=== PATIENT | male | born 1955 | race Caucasian/White ===

== ENCOUNTER 2017-11-27 14:52 | Inpatient (IN) | payer MEDICARE ==
[~2017-11-27] VITALS: Ht 182.9 cm; Wt 82.6 kg
[2017-11-27] MEDS ORDERED: CLON1TAB PO (15:06)
[2017-11-27] MEDS ORDERED: DIVALPROEX SODIUM (15:06)
[2017-11-27] MEDS ORDERED: LEVO100T PO (15:06)
[2017-11-27] MEDS ORDERED: HYDR-3972 PO (15:06)
[2017-11-27] MEDS ORDERED: IBUP-23 PO (15:06)
--- NOTE | 2017-11-27 15:20 | NUR ---
mse completed, pt to rm 140a , sbar report given.
[2017-11-27 15:45] VITALS: BP 139/85
[2017-11-27] MEDS ORDERED: ACETAMINOPHEN 325 MG TABLET PO PRN (15:45)
[2017-11-27] MEDS ORDERED: MAGNESIUM HYDROXIDE 30 ML LIQUID UDC PO PRN (15:45)
[2017-11-27] MEDS ORDERED: MAG HYDROX/AL HYDROX/SIMETH 30 ML LIQUID UDC PO PRN (15:45)
--- NOTE | 2017-11-27 15:45 | NUR ---
Pt arrived to unit via gurney accompanied by inside trucker. No combative or aggressive behavior. Very labile mood, requires redirection at times. Pt is quite intrusive, making multiple requests to staff. Denies pain or discomfort at this time.
[2017-11-27 19:30] VITALS: BP 170/89
[2017-11-27] MEDS: LORAZEPAM 1 MG TABLET PO PRN (19:39)
--- NOTE | 2017-11-27 19:40 | NUR ---
Received patient awake & alert in he hallway, anxious hyper verbal c/o bilateral foot discomfort. No SOB noted. Tylenol 650 mg po & Ativan 1 mg po given. Vital signs are WNL.
[2017-11-27] MEDS: HYDROCODONE/APAP 5-325MG TABLET PO PRN (20:25)
[2017-11-27] MEDS: QUETIAPINE FUMARATE 100 MG TABLET PO SCH ×2 (22:37→22:56)
[2017-11-27] MEDS: TRAZODONE 100 MG TABLET PO SCH ×2 (22:37→22:55)
[2017-11-27] MEDS: CLONAZEPAM 1 MG TABLET PO SCH ×2 (22:37→22:56)
[2017-11-27] MEDS: DIVALPROEX 250 MG TABLET.DR PO SCH ×2 (22:37→22:55)
--- NOTE | 2017-11-27 22:46 | NUR ---
DR RODRIGUEZ SPOKE WITH Pt ABOUT HIS TREATMENT PLAN AND MEDICATIONS. Pt IS AWARE OF ALL MEDICATIONS PRESCRIBED AND WAS WITNESSED TO VERBALIZE THAT HE "WOULD TRY" THE MEDICATIONS. 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 DEPAKOTE 250MG, SEROQUEL 100MG, KLONOPIN 1MG, TRAZODONE 100MG OFFERED TO Pt AND SCANNED. Pt THEN STATED HE DIDN'T KNOW WHAT THESE MEDICATIONS WERE, AND ASKED FOR HIS NORCO. IT WAS EXPLAINED TO Pt THAT HE HAD JUST TAKEN HIS NORCO WITHIN THE LAST HOUR. ALL MEDICATIONS WERE RE-EXPLAINED TO THE Pt, WHO VERBALIZED UNDERSTANDING. Pt STATED HE WOULD "WAIT" TO TAKE THE SLEEP MEDS. NON-PHARMACOLOGICAL REMEDIES OFFERED AND REFUSED.
--- NOTE | 2017-11-27 23:15 | NUR ---
Discussed & explained to patioent about indication of his new meds, patient verbalized understanding & took all his new prescribed meds by Dr. Naylor. Night snacks provided & instructed to go back to bed. Patient compliant w/ care.
--- NOTE | 2017-11-28 00:13 | NUR ---
Sleeping comfortably, no sign of distress.
--- NOTE | 2017-11-28 01:15 | NUR ---
Patient awake wondering around the hallway but completely disoriented, drowsy & staggering. Vital signs shows BP 124/80, HR 20 O2Sat 98%. Placed on Debbie-chair for now for patient's safety. Will continue to monitor.
[2017-11-28 01:20] VITALS: BP 124/80
--- NOTE | 2017-11-28 03:17 | NUR ---
Uncontrollable at this time, yelling & very manipulative, threatening the nurses & repetitively stating "I will kill you & I will kill myself". Kept patient on a secured Debbie-chair for patient's safety. Will continue to monitor.
[2017-11-28] MEDS: HYDROCODONE/APAP 5-325MG TABLET PO PRN ×2 (05:16→12:16)
[2017-11-28] MEDS: LORAZEPAM 1 MG TABLET PO PRN ×3 (05:16→14:05)
--- NOTE | 2017-11-28 05:17 | NUR ---
Patient slightly calmer but remains anxious, c/o bilateral lower leg & foot pain with 7/10 pain level. [place] 1 tab po & Ativan 1 mg po given. [place] sandwich provided per patient request.
[2017-11-28 06:48] LABS: BASOPHILS # (AUTO) 0.1 K/uL (0.0-8.0); BASOPHILS % (AUTO) 0.7 % (0.0-2.0); EOSINOPHILS # (AUTO) 0.1 K/uL (0.0-0.7); EOSINOPHILS % (AUTO) 0.8 % (0.0-7.0); HEMATOCRIT 38.4 % (36.7-47.1); HEMOGLOBIN 12.9 g/dL (12.5-16.3); LYMPHOCYTES # (AUTO) 2.3 K/uL (20.0-40.0); LYMPHOCYTES % (AUTO) 26.9 % (20.5-51.5); MEAN CORPUSCULAR HEMOGLOBIN 30.5 uug (23.8-33.4); MEAN CORPUSCULAR HGB CONC 34 g/dL (32.5-36.3); MONOCYTES # (AUTO) 0.9 K/uL (2.0-10.0); MONOCYTES % (AUTO) 10.8 % (0.0-11.0); NEUTROPHILS # (AUTO) 5.2 K/uL (1.8-8.9); NEUTROPHILS % (AUTO) 60.8 % (38.5-71.5); PLATELET COUNT (AUTO) 350 K/uL (152-348); RED BLOOD CELL COUNT(AUTO) 4.22 MIL/uL (4.06-5.63); WHITE BLOOD COUNT (AUTO) 8.6 K/uL (3.6-10.2)
[2017-11-28] MEDS ORDERED: LEVOTHYROXINE SODIUM 100 MCG TABLET PO SCH (07:00)
--- NOTE | 2017-11-28 07:13 | NUR ---
Patient showered today with assist. Requesting special breakfast today (scrambled eggs, perez well done cooked, & cerial w/a cold milk). Compliant w/ meds, no pain complaint at this time. No acute resp distress. Vital signs WNL.
[2017-11-28 07:30] VITALS: BP 153/79
[2017-11-28 07:36] LABS: BILIRUBIN,TOTAL 0.4 mg/dL (0.2-1.0); CREATININE 1.2 mg/dL (0.6-1.3); MAGNESIUM 2.2 mg/dL (1.8-2.4); PHOSPHOROUS 2.7 mg/dL (2.5-4.9); POTASSIUM 3.6 mmol/L (3.5-5.1); TOTAL PROTEIN, SERUM 7.1 g/dL (6.4-8.2)
[2017-11-28 08:04] LABS: THYROID STIMULATING HORMONE 8.368 mIU/mL (0.358-3.740)
[2017-11-28] MEDS: DIVALPROEX 250 MG TABLET.DR PO SCH ×3 (08:14→16:48)
[2017-11-28 09:38] VITALS: BP 153/79
[2017-11-28 15:13] VITALS: BP 151/80
[2017-11-28] MEDS ORDERED: diphenhydrAMINE 50 MG/1 ML VIAL IM ONE (15:15)
[2017-11-28] MEDS ORDERED: LORAZEPAM 2 MG/1 ML VIAL IM ONE (15:15)
[2017-11-28] MEDS ORDERED: HALOPERIDOL LACTATE 5 MG/1 ML VIAL IM ONE (15:15)
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
--- NOTE | 2017-11-28 15:41 | NUR ---
GPS/RN- PATIENT USING UNIT PHONE INDEPENDENTLY; THEN REQUESTING AND DEMANDING WE DIAL NUMBERS FOR HIM. PATIENT VERBALIZING HE DOESN'T KNOW HOW TO USE IT ALTHOUGH HE HAS BEEN USING AND MAKING CALLS INDEPENDENTLY. PATIENT BECOMING VERBALLY ABUSIVE WHEN STAFF ATTEMPTS TO GIVE HIM INSTRUCTIONS ON USE.
--- NOTE | 2017-11-28 17:24 | NUR ---
GPS/RN- patient Nephew here to visit, Ayo Jeter. Valuables in safe released to Ayo per patient request. patient present, staff present as witness, winter,HARLEY, and Keke Morejon CNA and Nelson Grimes LVN.
[2017-11-28] MEDS: AMLODIPINE 5 MG TABLET PO SCH (18:32)
[2017-11-28] MEDS: CLONAZEPAM 1 MG TABLET PO SCH (20:14)
[2017-11-28] MEDS: TRAZODONE 100 MG TABLET PO SCH (20:14)
[2017-11-28] MEDS: QUETIAPINE FUMARATE 100 MG TABLET PO SCH (20:14)
[2017-11-28 20:41] VITALS: BP 145/74
[2017-11-29] MEDS: LORAZEPAM 1 MG TABLET PO PRN ×3 (02:18→14:16)
--- NOTE | 2017-11-29 02:28 | NUR ---
GPS: Pt.is anxious,intrusive and constantly at nurses station for no reason. Constant re-direction and re-assurance provided by staff. Ativan 1mg given PO. Will monitor effectiveness. Reality re-orientation provided.
[2017-11-29] MEDS: LEVOTHYROXINE SODIUM 112 MCG TABLET PO SCH (06:15)
--- NOTE | 2017-11-29 06:55 | NUR ---
GPS: Remain confused and disoriented through the night. wondering around in the unit. asking staff to call 911 or call for texi. stated i want go to the hospital[place]. slept 5:30 hrs .continue mnitoring for safety.
[2017-11-29 07:30] VITALS: BP 124/89
[2017-11-29] MEDS: AMLODIPINE 5 MG TABLET PO SCH (08:31)
[2017-11-29] MEDS: DIVALPROEX 250 MG TABLET.DR PO SCH ×3 (08:31→16:34)
[2017-11-29] MEDS: HYDROCODONE/APAP 5-325MG TABLET PO PRN ×2 (08:31→20:11)
[2017-11-29] MEDS: QUETIAPINE FUMARATE 100 MG TABLET PO SCH ×2 (08:31→20:34)
[2017-11-29 16:28] VITALS: BP 117/68
[2017-11-29] MEDS: FLUVOXAMINE MALEATE 25 MG TABLET PO SCH (17:15)
[2017-11-29 20:00] VITALS: BP 134/71
--- NOTE | 2017-11-29 20:10 | NUR ---
PATIENT C/O GENERALIZED PAIN. REQUESTING FOR NORCO. PATIENT GIVEN 1 TAB PO ORDERED PRN FOR PAIN. WILL CONTINUE TO MONITOR AND ASSESS.
[2017-11-29] MEDS: CLONAZEPAM 1 MG TABLET PO SCH (20:34)
[2017-11-29] MEDS: TRAZODONE 100 MG TABLET PO SCH (20:34)
--- NOTE | 2017-11-29 21:15 | NUR ---
NORCO EFFECTIVE. DENIES PAIN AT THIS TIME. WILL CONTINUE TO MONITOR AND ASSESS.
[2017-11-30] MEDS: TEMAZEPAM 7.5 MG CAPSULE PO PRN ×2 (00:58→23:03)
--- NOTE | 2017-11-30 00:59 | NUR ---
PATIENT AWAKE. UNABLE TO SLEEP. GIVEN RESTORIL 7.5MG PO PRN FOR SLEEP. WILL CONTINUE TO MONITOR AND ASSESS.
[2017-11-30] MEDS: HYDROCODONE/APAP 5-325MG TABLET PO PRN ×3 (04:17→16:48)
--- NOTE | 2017-11-30 04:18 | NUR ---
GPS: Pt.is very intrusive and constantly at the nurses station demanding to use the phone at this time to call "[employer]". Easily irritable when staff is trying to re-direct him. Pt. is tangential and has flight of ideas at this time. Complained of pain on both of his feet 10/10 and demanding for his Foster. Foster 5/325 given for pain. Rest periods encouraged to facilitate relief. Constant re-direction/limit setting provided by staff. Will continue to monitor behavior for further escalation.
[2017-11-30] MEDS: LEVOTHYROXINE SODIUM 112 MCG TABLET PO SCH (06:09)
--- NOTE | 2017-11-30 06:41 | NUR ---
PATIENT AMBULATING IN HALLWAY. SLEPT A TOTAL OF 4 HOURS ON AND OFF. PATIENT WAS VERY NEEDY THROUGHOUT THE NIGHT AND REQUIRED FREQUENT REDIRECTION. LABILE MOOD. ALL NEEDS ATTENDED. WILL CONTINUE TO MONITOR.
[2017-11-30 07:02] LABS: *BILIRUBIN,URIN NEGATIVE (NEGATIVE); *BLOOD, URINE 1+ (NEGATIVE); *COLOR,URINE YELLOW (YELLOW); *KETONES,URINE NEGATIVE (NEGATIVE); *PROTEIN,URINE NEGATIVE (NEGATIVE); *UROBILINOGEN,URINE 0.2 E.U./dl (NORMAL); LEUKOCYTE ESTERASE ,URINE 3+ (NEGATIVE); NITRITE, URINE NEGATIVE (NEGATIVE); UGLUCOSE NEGATIVE (NEGATIVE)
[2017-11-30 07:17] LABS: *CLARITY,URINE CLOUDY (CLEAR)
[2017-11-30 07:19] LABS: BACTERIA,URINE MANY /HPF (NONE SEEN); RENAL EPITHELIAL CELLS,URINE FEW /LPF (NONE SEEN); SQUAMOUS EPITHELIAL CELL,UR FEW /HPF (NONE SEEN); TRANSITIONAL EPI CELLS,URINE FEW /LPF (NONE SEEN); WBC,URINE TNTC /HPF (0-3)
[2017-11-30 07:30] VITALS: BP 131/81
[2017-11-30] MEDS: FLUVOXAMINE MALEATE 25 MG TABLET PO SCH ×3 (08:13→16:46)
[2017-11-30] MEDS: QUETIAPINE FUMARATE 100 MG TABLET PO SCH ×2 (08:13→08:18)
[2017-11-30] MEDS: AMLODIPINE 5 MG TABLET PO SCH (08:13)
[2017-11-30] MEDS: DIVALPROEX 250 MG TABLET.DR PO SCH ×3 (08:13→16:53)
[2017-11-30] MEDS: LORAZEPAM 1 MG TABLET PO PRN ×3 (08:20→21:04)
[2017-11-30] MEDS: CEPHALEXIN MONOHYDRATE 500 MG CAPSULE PO SCH ×3 (10:41→21:04)
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
[2017-11-30 15:50] VITALS: BP_SYST 126; BP_SYST 144; BP_DIAS 63; BP_DIAS 67
--- NOTE | 2017-11-30 19:30 | NUR ---
Patient is alert, awake, & responsive currently sitting in the day room. A/Ox4 & able to make his needs known. Vital signs within range at beginning of shift. on a 14 day hold until 12/13/17. Patient denies S.I & has no active plan. Patient on ATB therapy for UTI. Room checked for safety at start of shift. Established rapport with patient. Will provide a safe & therapeutic environment through shift.
[2017-11-30 20:16] VITALS: BP 141/74
[2017-11-30] MEDS: TRAZODONE 100 MG TABLET PO SCH ×2 (20:44→21:52)
[2017-11-30] MEDS: QUETIAPINE FUMARATE 200 MG TABLET PO SCH ×2 (20:44→21:51)
[2017-11-30] MEDS: CLONAZEPAM 1 MG TABLET PO SCH ×2 (20:44→21:00)
[2017-12-01] MEDS: LORAZEPAM 1 MG TABLET PO PRN ×3 (04:09→18:03)
[2017-12-01] MEDS: HYDROCODONE/APAP 5-325MG TABLET PO PRN ×3 (05:10→20:24)
[2017-12-01] MEDS: LEVOTHYROXINE SODIUM 112 MCG TABLET PO SCH (06:00)
[2017-12-01] MEDS: CEPHALEXIN MONOHYDRATE 500 MG CAPSULE PO SCH ×3 (06:00→20:15)
--- NOTE | 2017-12-01 06:28 | NUR ---
Patient slept a total of 2 hours on and off ambulating in the hallway. Continues to be very needy throughout the night & required frequent redirection. Noted with labile mood. Compliant with medications. Administered Ativan 1mg PRN for agitation. Pain management provided per MD order. Provided a safe & therapeutic environment. All needs attended to promptly. Will endorse to day shift nurse.
[2017-12-01 07:30] VITALS: BP 142/71
[2017-12-01] MEDS: DIVALPROEX 250 MG TABLET.DR PO SCH ×3 (08:39→17:09)
[2017-12-01] MEDS: AMLODIPINE 5 MG TABLET PO SCH (08:39)
[2017-12-01] MEDS: FLUVOXAMINE MALEATE 25 MG TABLET PO SCH ×3 (08:39→17:09)
[2017-12-01 17:27] VITALS: BP 138/74
[2017-12-01] MEDS: TRAZODONE 100 MG TABLET PO SCH ×3 (20:17→22:34)
[2017-12-01] MEDS: CLONAZEPAM 1 MG TABLET PO SCH ×3 (20:17→22:34)
[2017-12-01] MEDS: QUETIAPINE FUMARATE 200 MG TABLET PO SCH ×3 (20:17→22:34)
[2017-12-01 20:21] VITALS: BP 159/78
[2017-12-01] MEDS: DIVALPROEX 500 MG TABLET.DR PO SCH ×2 (21:59→22:33)
--- NOTE | 2017-12-01 22:30 | NUR ---
received to care, intermittently pacing the hallway, interacting minimally with peers. continues to require frequent limit setting and redirection. PRN norco was given at 2023, with good effects. as of 2229, he remains awake. no distress noted.
[2017-12-01] MEDS ORDERED: DIVALPROEX 500 MG TABLET.DR PO ONE (22:38)
[2017-12-02] MEDS: LORAZEPAM 1 MG TABLET PO PRN ×3 (04:34→16:48)
--- NOTE | 2017-12-02 04:34 | NUR ---
PRN ativan given for anxiety
[2017-12-02] MEDS: CEPHALEXIN MONOHYDRATE 500 MG CAPSULE PO SCH ×4 (05:43→22:53)
--- NOTE | 2017-12-02 06:00 | NUR ---
slept 3.0 hours total.
[2017-12-02] MEDS: HYDROCODONE/APAP 5-325MG TABLET PO PRN ×3 (06:06→21:17)
[2017-12-02] MEDS: LEVOTHYROXINE SODIUM 112 MCG TABLET PO SCH (06:06)
--- NOTE | 2017-12-02 06:06 | NUR ---
appears calmer, now. PRN norco given for lower back pain 11/30.
[2017-12-02 07:30] VITALS: BP 125/86
[2017-12-02] MEDS: AMLODIPINE 5 MG TABLET PO SCH (08:20)
[2017-12-02] MEDS: DIVALPROEX 250 MG TABLET.DR PO SCH ×2 (08:21→13:24)
[2017-12-02] MEDS: FLUVOXAMINE MALEATE 25 MG TABLET PO SCH ×3 (08:21→16:48)
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
--- NOTE | 2017-12-02 13:30 | NUR ---
NORCO GIVEN FOR C/O BLE PAIN. WILL CONT TO MONITOR.
--- NOTE | 2017-12-02 14:30 | NUR ---
NORCO EFFECTIVE. PT APPEARS MORE CALM AND COMFORTABLE.
--- NOTE | 2017-12-02 14:52 | NUR ---
Activity group note: Patients were asked to look at [employer] pictures and share a story telling what they saw in the picture or how it made them feel. Patients were encouraged to reference their senses such as smell, taste, feel, hear, etc. Subjective: "Ok, my turn to look at the picture" [Pt made this comment with enthusiasm and interest]. Objective: Patient appeared happy to participate in activity and gave opinion about each picture. Patient was attentive to others responses though needed redirection when interrupting other patients while talking. Assessment: Patient needs help with boundary setting and impulse control as would often say inappropriate things during group (i.e. "is it time to smoke a joint?"). Plan: Encourage group attendance as scheduled. shoe worker will continue to provide guidance and support in boundary setting and impulse control during group activities.
[2017-12-02 16:15] VITALS: BP 132/71
--- NOTE | 2017-12-02 18:24 | NUR ---
PT DEMANDING AND NEEDY, GIVEN IF APPROPRIATE BUT GIVEN BOUNDARIES WELL. FRIENDLY WITH OTHER RESIDENTS. WENT OUT TO [place] TODAY AT LEAST THREE TIMES. WANTS TO SHOWER TONIGHT BEFORE BED. WILL CONTINUE TO MONITOR.
[2017-12-02 19:35] VITALS: BP 159/80
[2017-12-02] MEDS: TRAZODONE 100 MG TABLET PO SCH ×2 (21:00→22:53)
[2017-12-02] MEDS: CLONAZEPAM 1 MG TABLET PO SCH ×2 (21:00→22:53)
[2017-12-02] MEDS: QUETIAPINE FUMARATE 200 MG TABLET PO SCH ×2 (21:00→22:54)
[2017-12-02] MEDS: DIVALPROEX 500 MG TABLET.DR PO SCH ×2 (21:00→22:53)
--- NOTE | 2017-12-02 23:20 | NUR ---
received to care, pleasant upon approach. demanding and manipulative. selective with medications and times he is willing to take them. PRN norco given at 2116, for 10/10 generalized pain. by 2199, he expressed good relief. he initially refused his bedtime medications, but did take them at 2252, then he went to bed. as of 2319, he remains awake, in bed. no distress noted. will continue to monitor closely.
[2017-12-03] MEDS: LORAZEPAM 1 MG TABLET PO PRN ×3 (04:04→15:04)
[2017-12-03] MEDS: HYDROCODONE/APAP 5-325MG TABLET PO PRN ×3 (05:53→18:04)
[2017-12-03] MEDS: CEPHALEXIN MONOHYDRATE 500 MG CAPSULE PO SCH ×3 (05:53→21:27)
[2017-12-03] MEDS: LEVOTHYROXINE SODIUM 112 MCG TABLET PO SCH (06:09)
[2017-12-03 07:30] VITALS: BP 139/76
[2017-12-03] MEDS: FLUVOXAMINE MALEATE 25 MG TABLET PO SCH ×3 (09:34→17:44)
[2017-12-03] MEDS: DIVALPROEX 250 MG TABLET.DR PO SCH (09:35)
[2017-12-03] MEDS: AMLODIPINE 5 MG TABLET PO SCH (09:35)
--- NOTE | 2017-12-03 11:14 | NUR ---
Discharge Planning: precast worker received info that MD is planning for patients discharge tomorrow (12/04/2017). precast worker called patients nephew, Ayo [[phone]], to confirm transportation. precast worker left voicemail and is awaiting callback.
[2017-12-03 16:32] VITALS: BP 141/78
[2017-12-03 20:00] VITALS: BP 135/76
[2017-12-03] MEDS: CLONAZEPAM 1 MG TABLET PO SCH (21:27)
[2017-12-03] MEDS: VALPROIC ACID 250 MG/5 ML LIQUID UDC PO SCH ×2 (21:59→22:24)
[2017-12-03] MEDS: QUETIAPINE FUMARATE 200 MG TABLET PO SCH ×2 (21:59→22:25)
[2017-12-03] MEDS: TRAZODONE 100 MG TABLET PO SCH ×2 (21:59→22:25)
--- NOTE | 2017-12-03 23:00 | NUR ---
received to care, pleasant upon approach. demanding and manipulative. selective with medications and times he is willing to take them. as of 2299, he appears to be asleep. no distress noted. will continue to monitor closely.
--- NOTE | 2017-12-04 01:11 | NUR ---
pt is now awake, with a staggering gait, eyes half closed, demanding medications, for sleep. he was told that he appears too sedated for sleeping medication, so he asked for both a pain pill, and an anxiety pill. when he was again told he was too sedated to take more medications at this time, he said, he was going to stay up all night, and wake everybody up, and i am going to give you a bad yelp review. firm limits were set. currently lying in bed. monitored closely for safety.
--- NOTE | 2017-12-04 03:26 | NUR ---
continues to come out intermittently, with a still unsteady gait, demanding more medications. becomes verbally abusive when told he is too sedated still. states "WAIT TILL TOMORROW. I WILL FIX YOU". he was redirected back to his room. he appears to have calmed down, for now. will continue to monitor closely.
[2017-12-04] MEDS: HYDROCODONE/APAP 5-325MG TABLET PO PRN ×2 (04:59→11:25)
[2017-12-04] MEDS: CEPHALEXIN MONOHYDRATE 500 MG CAPSULE PO SCH (05:04)
--- NOTE | 2017-12-04 05:59 | NUR ---
is more appropriate now. PRN norco given for 10/10 bilateral foot pain.
[2017-12-04] MEDS: LORAZEPAM 1 MG TABLET PO PRN ×2 (06:10→10:22)
[2017-12-04] MEDS: LEVOTHYROXINE SODIUM 112 MCG TABLET PO SCH (06:10)
--- NOTE | 2017-12-04 06:10 | NUR ---
states good relief from the norco. PRN ativan given for anxiety.
--- NOTE | 2017-12-04 06:26 | NUR ---
appears calmer, now. slept 2.5 hours total.
[2017-12-04 07:30] VITALS: BP 134/86
--- NOTE | 2017-12-04 07:53 | NUR ---
Discharge Note: Patient will be discharged back to his home [[address] [place] [id number]; [phone]] via private transportation by Ayo [[phone]], patients nephew at 1:00pm. Patient will receive home health services through [facility] ([phone]) and accepting information was provided by Eliane. Patients nephew and emergency contact, Ayo ([phone]), was contacted and informed and agreeable with discharge plan. Patient is alert and oriented x3, is able to plan for self-care, and denies any SI/HI. Patient is aware and agreeable with discharge plans. Patient will continue to follow-up with his Primary Care Physician, Dr. Brooks [[phone]] and with his psychiatrist Dr. Lackey ([phone]). However, patient is thinking about changing psychiatrists and was provided a list of Medicare accepting psychiatrists in the [place]. Pt was also provided with a list of Medicare accepting clinical psychologists in the [place] area. Patient was provided additional mental health referrals Mental Health Resources [facility] ( ), [facility] ( ), and National Suicide Prevention Lifeline ( ). Patient was provided a brief substance abuse intervention and was provided outpatient referrals for [facility] [[phone]], [facility] ([phone]), and Substance Abuse and Mental Health Services Administration (SAMHSA) National Helpline [3-554-101-HELP (8838)].
[2017-12-04] MEDS: FLUVOXAMINE MALEATE 25 MG TABLET PO SCH ×2 (08:35→12:21)
[2017-12-04 08:41] VITALS: BP 134/86
[2017-12-04] MEDS: AMLODIPINE 5 MG TABLET PO SCH (08:41)
[2017-12-04] MEDS ORDERED: VALPROIC ACID 250 MG/5 ML LIQUID UDC PO SCH ×3 (09:00→13:00)
[2017-12-04] MEDS ORDERED: VALPROIC ACID 250 MG CAPSULE PO SCH ×2 (09:00→13:00)
--- NOTE | 2017-12-04 12:11 | NUR ---
Gps/Medicare Interviewer- Discharge planning in progress, patient to be discharge at 1300 this pm, Nephew will be in to chicken picker patient. Patient was well informed about his discharged plan .
== END 2017-12-04 13:15 | disposition home or self-care (01) | DRG 885 ==
LOC: ER 14:53 → GPS 15:29
PROVIDERS: ADMIT Psychiatry & Neurology Psychiatry; ATTEND Internal Medicine
DX: F31.64 Bipolar disorder, current episode mixed, severe, with psychotic features (principal); B95.1 Streptococcus, group B, as the cause of diseases classified elsewhere; E87.1 Hypo-osmolality and hyponatremia; N39.0 Urinary tract infection, site not specified; I10 Essential (primary) hypertension; E03.9 Hypothyroidism, unspecified; G89.4 Chronic pain syndrome; Z91.5 Personal history of self-harm; R73.9 Hyperglycemia, unspecified; H91.90 Unspecified hearing loss, unspecified ear; G62.9 Polyneuropathy, unspecified; D47.3 Essential (hemorrhagic) thrombocythemia
CPT/HCPCS: 36415; 80164; 83735; 84100; 84443; 85025; 87077; 87086; A4663; J1200; J1630; J2060; J3490